=== PATIENT | male | born 2000 | race Caucasian/White ===

== ENCOUNTER 2020-07-18 06:40 | Emergency (ER) | payer OTHER, SELFPAY ==
[2020-07-18 06:41] VITALS: BP 125/76; PULSE 83; RESP 16; TEMP 36.5; O2SAT 100; BMI 22.1
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
--- NOTE | 2020-07-18 07:15 | ED.RN ---
WENT IN TO START IV, PT REFUSES. STATES HE CANNOT TOLERATE THE STRESS OF AN IV RIGHT NOW. ATTEMPTED TO EDUCATED PT, TALK PT THROUGH PROCEDURE. PT STILL REFUSES. DR MAGANA MADE AWARE, DR MAGANA TO SPEAK TO PT.
[2020-07-18] MEDS: 0.9% Normal Saline 1,000 ML 999 ML IV (07:30)
[2020-07-18] MEDS: Ondansetron 4 MG/2 ML Vial IV (07:32)
[2020-07-18 07:40] LABS: Absolute Lymphocyte Count 1.83 X10^3/uL (0.83-4.51); Basophil# 0.05 X10^3/uL; Basophil% 0.7 % (0-1); Eosinophil# 0.27 X10^3/uL; Eosinophils% 3.9 % (0-5); Hematocrit 45.3 % (40-54); Hemoglobin 15.6 g/dL (13.0-16.5); Lymphocyte # 1.83 X10^3/ul (4.0); Lymphocyte % 26.7 % (19-41); Mean Corp Hgb Conc 34.4 g/dL (32-36); Mean Corpuscular Hgb 30.6 pg (27.0-32.0); Mean Corpuscular Volume 88.8 fL (80-94); Mean Platelet Vol. 10.7 fl (6.2-12.0); Monocyte# 0.66 X10^3/uL; Monocyte% 9.6 % (0-10); NRBC Flagged by Analyzer 0 % (0-5); Neutrophil # 3.97 X10^3/uL (2.7-7.7); Neutrophil % 58.1 % (47-70); Platelet Count 210 K/mm3 (150-450); RBC Distribution Width SD 39.4 fl (35.1-43.9); White Blood Count 6.9 K/mm3 (4.4-11.0)
[2020-07-18 07:52] LABS: Anion Gap 5 (5-15); BUN 8 mg/dL (7-18); BUN/Creat Ratio 9.7 RATIO (10-20); Calcium,Total 9.2 mg/dL (8.5-10.1); Chloride 108 mmol/L (98-107); Creatinine, Serum 0.82 mg/dL (0.70-1.30); EST Glomerular Filtration Rate 127 mL/min (>60); Est Glom Filt Rate - Afr Amer 153 mL/min (>60); Estimated Creatinine Clearance 131.37 ml/min; Glucose 107 mg/dL (74-106); Potassium 3.6 mmol/L (3.5-5.1); Sodium Level 142 mmol/L (136-145)
[2020-07-18] MEDS: Ketorolac 30 MG/ML Syringe IV (08:15)
[2020-07-18 08:31] VITALS: BP 119/74; PULSE 69; RESP 18; O2SAT 99
== END 2020-07-18 08:32 | disposition home or self-care (01) ==
PROVIDERS: Emergency Provider Emergency Medicine; PCP Family Medicine
DX: S00.83XA Contusion of other part of head, initial encounter (principal); S20.211A Contusion of right front wall of thorax, initial encounter; S39.91XA Unspecified injury of abdomen, initial encounter; M79.652 Pain in left thigh; V43.52XA Car driver injured in collision with other type car in traffic accident, initial encounter; Y93.9 Activity, unspecified; Y92.9 Unspecified place or not applicable; Y99.9 Unspecified external cause status; F17.200 Nicotine dependence, unspecified, uncomplicated
CPT/HCPCS: 70450; 71045; 74177; 80048; 85025; 96361; 96374; 96375; 99283; 99285; J7030; Q9967; A4216; J2405